=== PATIENT | male | born 1975 | race African-American/Black ===

== ENCOUNTER 2017-11-13 06:40 | Emergency (ER) | payer OTHER ==
[~2017-11-13] VITALS: Ht 170.2 cm; Wt 72.7 kg
[2017-11-13 06:42] VITALS: BP 118/68
== END 2017-11-13 07:40 | disposition home or self-care (01) ==
LOC: EMS 06:41
DX: S62.306D Unspecified fracture of fifth metacarpal bone, right hand, subsequent encounter for fracture with routine healing (principal); F19.90 Other psychoactive substance use, unspecified, uncomplicated; F12.90 Cannabis use, unspecified, uncomplicated; X58.XXXD Exposure to other specified factors, subsequent encounter
CPT/HCPCS: 99283

== ENCOUNTER 2017-12-10 03:10 | Emergency (ER) | payer OTHER ==
[~2017-12-10] VITALS: Ht 175.3 cm; Wt 80.5 kg
[2017-12-10] MEDS ORDERED: AZITHROMYCIN 250 MG TABLET PO ONE (03:45)
[2017-12-10] MEDS ORDERED: CefTRIAXone SODIUM 1 GM/VIAL IM ONE (03:45)
[2017-12-10] MEDS ORDERED: LIDOCAINE/PF 1% 5 ML VIAL ONE (03:49)
[2017-12-10 04:24] LABS: APPEARANCE,URINE CLEAR (CLEAR); BILIRUBIN,URINE NEGATIVE (NEGATIVE); GLUCOSE, URINE (UA) NEGATIVE (NEGATIVE); KETONES,URINE NEGATIVE (NEGATIVE); LEUKOCYTE ESTERASE ,URINE NEGATIVE (NEGATIVE); NITRATE,URINE NEGATIVE (NEGATIVE); OCCULT BLOOD,URINE NEGATIVE (NEGATIVE); PH,URINE 5.5 (5.0-8.0); PROTEIN,URINE NEGATIVE (NEGATIVE)
[2017-12-10 04:25] VITALS: BP 128/74
[2017-12-10 04:31] LABS: RBC,URINE 0-2 /HPF (0-2)
[2017-12-10 04:32] LABS: BACTERIA,URINE Rare /HPF (None Seen); MUCUS,URINE Few LPF (None Seen); SQUAMOUS EPITHELIAL CELL,UR Moderate /LPF (None Seen)
== END 2017-12-10 04:34 | disposition home or self-care (01) ==
LOC: EDBD → EMS 03:11
DX: N34.2 Other urethritis (principal); F12.90 Cannabis use, unspecified, uncomplicated; Z98.890 Other specified postprocedural states
CPT/HCPCS: 81001; 87491; 87591; 96372; 99284; J0696; J3490

== ENCOUNTER 2017-12-19 10:38 | Emergency (ER) | payer OTHER ==
[~2017-12-19] VITALS: Ht 175.3 cm; Wt 78.6 kg
[2017-12-19] MEDS ORDERED: MORPHINE SULFATE 2 MG/ML SYRINGE IVP ONE (11:15)
[2017-12-19 12:16] VITALS: BP_DIAS 68
[2017-12-19 13:52] VITALS: BP_SYST 68
== END 2017-12-19 14:16 | disposition home or self-care (01) ==
LOC: EMS 10:39 → EDBD 10:39 → EMS 14:16
DX: S92.222A Displaced fracture of lateral cuneiform of left foot, initial encounter for closed fracture (principal); S92.322A Displaced fracture of second metatarsal bone, left foot, initial encounter for closed fracture; S92.332A Displaced fracture of third metatarsal bone, left foot, initial encounter for closed fracture; S92.312A Displaced fracture of first metatarsal bone, left foot, initial encounter for closed fracture; F12.90 Cannabis use, unspecified, uncomplicated; Z98.890 Other specified postprocedural states; V09.20XA Pedestrian injured in traffic accident involving unspecified motor vehicles, initial encounter; Y93.89 Activity, other specified; Y92.89 Other specified places as the place of occurrence of the external cause; Y99.8 Other external cause status
CPT/HCPCS: 29515; 73610; 73630; 96374; 99284; J2270